=== PATIENT | male | born 1990 | race Caucasian/White ===

== ENCOUNTER 2017-04-24 19:42 | Inpatient (IN) | payer OTHER ==
[2017-04-24 19:47] VITALS: O2SAT 99
--- NOTE | 2017-04-24 19:48 | ED PDOC ---
Psych Transfer Clearance - Clearance Statement Clearance Statement: Dr. Cruz reviewed vital signs, lab results and transfer papers and deemed patient clinically stable for psychiatric admission.
--- NOTE | 2017-04-24 21:57 | PCM.BM ---
<Isaura Vaughan - Last Filed: 04/24/17 21:55> Treatment assets and liabiliti Patient Assests: adapts well, cooperative, educated, insightful, motivated, self -reliant, ADL independent, physically healthy, negotiates basic needs, cognitively intact, good interpersonal skills Patient Liabilities: financial problems, poor support system, relationship conflicts, substance abuse - Milieu Protocol Maintain good personal hygiene: daily Encourage regular showers, daily Remind patient to perform daily oral care, daily Assist patient to perform ADL's Maintain personal safety: every shift Educate patient to report safety concerns to staff, every shift Monitor environment for contraband/sharps Medication safety: Monitor for expected outcome, potential side effects: every shift, Assess barriers to learning: daily, Assess readiness for medication education: daily <Ann Bragg - Last Filed: 04/29/17 10:50> Treatment assets and liabiliti Patient Assests: adapts well, cooperative, insightful, motivated, resourceful, self-reliant, ADL independent, physically healthy, negotiates basic needs, cognitively intact, good interpersonal skills Patient Liabilities: financial problems, poor support system, relationship conflicts, substance abuse Family Contact Family involvement: Family/SO is involved Family contact: Patient agrees to contact, Family has been contacted by patient , Telephone contact initiated by staff Family contact name: Radha (girlfriend)([phone]) Family contacted how many times per week?: 2 Family contact comment: Help Desk Analyst placed call to patients primary support/long time girlfriend to discuss patients progress on 3NP and aftercare. Help Desk Analyst provided psychoeducation regarding nature of tx provided on 3NP and rehab referrals. Patients girlfriend reports that patient will not be allowed to return to her home until a program is completed. Patients girlfriend notified that patient has been accepted for substance abuse tx with Dima Bran ([facility]) and will be discharged to program on 05/01. - Outside Agency Agency 1 Care involvment: Other Agency contact name: Dima BranDOMINGO) Agency contact number: [phone] - Goals for Treatment Patient goals for treatment: Patient to continue stabilization on 3NP through medication management and group/supportive therapy. Patient encouraged to attend 3-6 groups/weekly to develop appropriate coping skills, improve sinight and promote compliance and sobriety. Patient reports improvement in symptoms of depression since admission. Patient denies SI/HI. Patient denies AH/VH. Patient visible on 3NP and observed socializing appropriately with peers. Patient expresses motivation for tx upon discharge and is anticipated to begin substance abuse tx with [facility] on 05/01. Discharge/Continuing Care - Education Needs Education Needs: Family Medication, Family Diagnosis/Disease Process, Family Coping Skills, Family Community resources, Family Aftercare Safety Plan, Patient Medication, Patient Diagnosis/Disease Process, Patient Coping Skills, Patient Community resources, Patient Aftercare Safety Plan - Discharge Discharge Criteria: Tolerates medication w/o severe side effects, Free of Suicidal thoughts, Free of agitation, Normal sleep pattern, Ability to care for self, No longer exhibiting s/s of withdrawal, Reduction of target symptoms Discharge to:: Substance Abuse Rehab - Treatment Team Participation Patient/Family/SO Statement: 04/29/17 10:44 Patient invited to treatment team to discuss progress on 3NP, improvement in symptoms and aftercare. Patient presents with brighter affect and reports improvement in symptoms of depression. Patient expresses being motivated for substance abuse treatment. Patient visible on 3NP and observed socializing appropriately with select peers. No harmful behaviors noted. Discussed with Family/SO: Yes Was Patient/Family/SO present at Treatment Team Meeting: Yes
[2017-04-24] MEDS ORDERED: Magnesium Hydroxide Susp 30 ml UD PO PRN (22:19)
[2017-04-24] MEDS ORDERED: Alum-Mag Hydrox-Simethicone Susp (30 mL) PO PRN (22:19)
[2017-04-24] MEDS ORDERED: DiphenhydrAMINE 50 mg/ml Inj IM PRN (22:19)
[2017-04-25 08:14] LABS: T4 9.95 ug/dl (5.5-11.0)
[2017-04-25 08:28] LABS: THYROID STIMULATING HORMONE 0.4 mIU/ML (0.46-4.68)
--- NOTE | 2017-04-25 12:31 | CP.PCM.CON ---
History of Present Illness - History of Present Illness History of Present Illness: Reason for Consult: per hospital protocol HPI: 27 year old male no past medical history transferred from [facility] for depression. Pt states he uses about $400 worth of crack/cocaine daily, and steals to support his habit. Patient has no other complaints at this time. VSS. NAD. ROS: per HPI, 12 systems reviewed and negative PMH: denies PSH: denies FH: denies SH: tobacco 10 pack/year hx, liquor every other day can not identify amount, crack/cocaine $400 worth daily Meds: as below Allergies: NKDA Vitals: reviewed and currently stable Exam: GEN: WDWN, alert, cooperative HEENT: NCAT, PERRL, EOMI NECK: supple, no JVD, no lymphadenopathy CARDIAC: +S1S2 RRR LUNG: CTAB No WRR ABD: SOFT NT ND BSX4 NO MASSES NO HSM EXT: +pedal pulses, equal strength NEURO: AAOx3 SKIN warm, dry PSYCH normal mood, normal affect Labs: pending to be reviewed Assessment and Plan: 27 year old male no past medical history transferred from [facility] for depression. Pt states he uses about $400 worth of crack/cocaine daily, and steals to support his habit. Patient has no other complaints at this time. VSS. NAD. Depression Substance Abuse Management per psych team Past Patient History - CARDIAC Hx Cardiac Disorders: No - PULMONARY Hx Respiratory Disorders: No - NEUROLOGICAL Hx Neurological Disorder: No - HEENT Hx HEENT Problems: No - RENAL Hx Chronic Kidney Disease: No - ENDOCRINE/METABOLIC Hx Endocrine Disorders: No - HEMATOLOGICAL/ONCOLOGICAL Hx Blood Disorders: No - INTEGUMENTARY Hx Dermatological Problems: No - MUSCULOSKELETAL/RHEUMATOLOGICAL Hx Musculoskeletal Disorders: No - GASTROINTESTINAL Hx Gastrointestinal Disorders: No - GENITOURINARY/GYNECOLOGICAL Hx Genitourinary Disorders: No - PSYCHIATRIC Hx Substance Use: Yes - SURGICAL HISTORY Hx Surgeries: No - ANESTHESIA Hx Anesthesia: No Hx Anesthesia Reactions: No Has any member of the family had a problem w/ anesthesia?: No Meds Allergies/Adverse Reactions: Allergies Allergy/AdvReac Type Severity Reaction Status Date / Time No Known Allergies Allergy Verified 04/24/17 19:44 - Medications Medications: Current Medications Acetaminophen (Tylenol 325mg Tab) 650 mg PO Q4 PRN PRN Reason: Pain, moderate (4-7) Al Hydrox/Mg Hydrox/Simethicone (Maalox Plus 30 Ml) 30 ml PO Q4 PRN PRN Reason: Dyspepsia Diphenhydramine HCl (Benadryl) 50 mg IM Q6 PRN PRN Reason: Extrapyramidal S/S Unable PO Diphenhydramine HCl (Benadryl) 50 mg PO Q6 PRN PRN Reason: Extrapyramidal Symptoms Diphenhydramine HCl (Benadryl) 50 mg PO HS PRN PRN Reason: Sleep Haloperidol (Haldol) 5 mg PO Q4 PRN PRN Reason: Agitation Haloperidol Lactate (Haldol) 5 mg IM Q4 PRN PRN Reason: Agitation, Unable to Take PO Lorazepam (Ativan) 2 mg IM Q4 PRN PRN Reason: Anxiety/Agitation,Unable PO Lorazepam (Ativan) 2 mg PO Q4 PRN PRN Reason: Anxiety/Agitation Magnesium Hydroxide (Milk Of Magnesia) 30 ml PO HS PRN PRN Reason: Constipation Results - Vital Signs Recent Vital Signs: Last Vital Signs Temp 98.1 F 04/24/17 19:44 Pulse 82 04/24/17 22:00 Resp 17 04/24/17 22:00 BP 129/73 04/24/17 19:44 Pulse Ox 99 04/24/17 19:44 - Labs Labs: Laboratory Results - last 24 hr 04/25/17 07:20 Triglycerides 52 Cholesterol 106 LDL Cholesterol Direct 54 HDL Cholesterol 40 Thyroxine (T4) 9.95 TSH 3rd Generation 0.40 L
[2017-04-25 17:11] LABS: HEMATOCRIT 44.8 % (35.0-51.0); MEAN CELL VOLUME 85.7 fl (80.0-94.0); MEAN CORPUSCULAR HEMOGLOBIN 27.5 pg (27.0-31.0); RED CELL DISTRIBUTION WIDTH 15.4 % (11.5-14.5); WHITE BLOOD COUNT 7.7 K/uL (4.8-10.8)
[2017-04-25 17:18] LABS: BLOOD UREA NITROGEN 16 mg/dl (9-20); CALCIUM 9.9 mg/dL (8.4-10.2); CARBON DIOXIDE 25 mmol/L (22-30); CHLORIDE 103 mmol/L (98-107); GFR AFRICAN-AMERICAN > 60; GLUCOSE,RANDOM 78 mg/dL (75-110); POTASSIUM 4.6 MMOL/L (3.6-5.0); SODIUM 140 mmol/l (132-148)
--- NOTE | 2017-04-26 17:48 | PCM.PSYCH ---
Initial Psychiatric Evaluation - Initial Psychiatric Evaluation Chief Complaint (in patient's own words): late note for [id number]\\ pt [facility] reportedly attempting to take life after ingesting etoh,cocaine heroin. reportedly was despondent 2nd to finances, now working. reported chronic use of substance with recent increase. has a girlfriend of 6 years who is reportedly supportive. pt reports that has been told in past that appears to have difficulty sitting still, paying attention. Denies known issues in school. 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 originally from [place], [place], has family in [place], last visit [facility] approx. 2 years ago. pt reports that has had a substance abuse hx. for several years, with amount used reportedly stable (no increase), pt does report a hx. of being incarcerated in past for 6 months (CDS)-longest period of being free of substance use use: underlying mood reported as being depressed. reports one previous suicide attempt approx. 1 year ago similar circumstance as current. does report having "a bad childhood" but defers details. Patient's Reaction to Hospitalization: verbally agreeable for admission History of Present Illness and Precipitating Events: see above Current Medications: Active Medications Generic Name Dose Route Start Last Admin Trade Name Freq PRN Reason Stop Dose Admin Acetaminophen 650 mg 04/24/17 22:19 Tylenol 325mg Tab PO Q4 PRN Pain, moderate (4-7) Al Hydrox/Mg Hydrox/Simethicone 30 ml 04/24/17 22:19 Maalox Plus 30 Ml PO Q4 PRN Dyspepsia Bupropion HCl 75 mg 04/27/17 09:00 Wellbutrin PO DAILY SUSHANT Diphenhydramine HCl 50 mg 04/24/17 22:19 Benadryl IM Q6 PRN Extrapyramidal S/S Unable PO Diphenhydramine HCl 50 mg 04/24/17 22:19 Benadryl PO Q6 PRN Extrapyramidal Symptoms Diphenhydramine HCl 50 mg 04/24/17 23:37 Benadryl PO HS PRN Sleep Haloperidol 5 mg 04/24/17 22:19 Haldol PO Q4 PRN Agitation Haloperidol Lactate 5 mg 04/24/17 22:19 Haldol IM Q4 PRN Agitation, Unable to Take PO Lorazepam 2 mg 04/24/17 22:19 Ativan IM Q4 PRN Anxiety/Agitation,Unable PO Lorazepam 2 mg 04/24/17 22:19 Ativan PO Q4 PRN Anxiety/Agitation Magnesium Hydroxide 30 ml 04/24/17 22:19 Milk Of Magnesia PO HS PRN Constipation Past Psychiatric History - Past Psychiatric History Prior Professional Help: inpt er Prior Psychiatric Treatment: [facility] Nature of Treatment: previous n/a denies detox History of Abuse: defers detail at time of examination review may share with team at later time History of ETOH/Drug Use: cocaine, heroin, etoh intranasal denies DT's History of Family Illness: denies Pertinent Medical Hx (Current Medical&Sleep Prob, Allergies): Allergies Allergy/AdvReac Type Severity Reaction Status Date / Time No Known Allergies Allergy Verified 04/24/17 19:44 Review of Systems - Psychiatric Psychiatric: Abnormal Sleep Pattern, Anhedonia, Suicidal Ideation Additional comments: contracts for safety trouble with concentration sitting still Mental Status Examination - Personal Presentation Personal Presentation: Looks older than stated age - Affect Affect: Constricted - Motor Activity Motor Activity: Calm, Psychomotor Retardation - Reliability in Providing Information Reliability in Providing Information: Fair - Speech Speech: Organized - Mood Mood: Depressed - Obsessions/Compulsions Obsessions: No Compulsions: No - Cognitive Functions Orientation: Person, Place, Situation, Time Sensorium: Alert Attention/Concentration: Attentive Judgement: Intact, as evidence by: Other - Risk Risk: Suicidal Additional comments: contracts - Strength & Assets Inventory Strength & Assets Inventory: Cooperative Additional comments: supportive female significant - Limitations Additional comments: chronic substance use DSM 5 DX - DSM 5 DSM 5 Diagnosis: major 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 of previous suicide attempt - Recommended/Plan of Treatment Treatment Recommendations and Plan of Treatment: admission per dr ortiz vital signs/clinical observation per protocol and per clinical status hospital consult prns per protocol requesting [facility] detox obtain collateral information in am() Projected ELOS: 5-7 days Prognosis: guarded Discharge Plan and Discharge Criteria: safety - Smoking Cessation Smoking Cessation Initiated: No Reason for not providing: defers need
--- NOTE | 2017-04-26 18:03 | PCM.PYCHPN ---
Psychiatric Progress Note - Psychiatric Progress Note Patient seen today, length of contact: chart reviewed case discussed with team Patient Chief Complaint: pt seen in unit, interacting with select peers, staff report pt adherent with milieu therapy, pt reports slept well appetite good pt had visit today with female significant other who collaborates history , does report that pt is easily distracted, beginning many things without completing, possibly being told possible adhd? late note for [id number]\\ pt presented to [facility] via [facility] after referral from [facility] after reportedly attempting to take life after ingesting etoh,cocaine heroin. reportedly was despondent 2nd to finances, now working. reported chronic use of substance with recent increase. has a girlfriend of 6 years who is reportedly supportive. pt reports that has been told in past that appears to have difficulty sitting still, paying attention. Denies known issues in school. 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 originally from [place], estranged from family in , has family in [place], last visit [facility] approx. 2 years ago. pt reports that has had a substance abuse hx. for several years, with amount used reportedly stable (no increase), pt does report a hx. of being incarcerated in past for 6 months (CDS)-longest period of being free of substance use use: underlying mood reported as being depressed. reports one previous suicide attempt approx. 1 year ago similar circumstance as current. does report having "a bad childhood" but defers details. Problems Identified/Issues Discussed: alteration in mood alteration in safety ?alteration in cognition Medical Problems: per chart Diagnostic Results: per psychiatry per medicine per nursing per social work DSM 5 Symptoms Update: depressed mood, alteration in coping chronic substance use, no withdrawal Medication Change: Yes (wellbutrin 75mg po day) Medical Record Reviewed: Yes Consults ordered or reviewed: pt being seen by hospitalist Mental Status Examination - Cognitive Function Orientation: Person, Place, Situation, Time Attention: WNL Concentration: WNL Association: WNL Fund of Knowledge: WNL Decription of patient's judgement and insights: impaired - Mood Mood: Depressed - Affect Affect: Constricted - Suicidal Ideation Suicidal Ideation: Yes Plan: contracts safety - Homicidal Ideation Homicidal Ideation: No Goal/Treatment Plan - Goal/Treatment Plan Need for Continued Stay: Severe depression anxiety, Discharge may exacerbated symptoms Progress Toward Problem(s) and Goals/Treatment Plan: inpt milieu start buproprion 75mg po daily vital signs/clinical observation per protocol and per clinical status hospital consult prns per protocol requesting [facility] detox disposition planning in progress ?[facility] detox Estimated Date of D/C: 04/30/17 - Smoking Cessation Smoking Cessation Initiated: No Reason for not providing: pt defers
--- NOTE | 2017-04-27 12:17 | PCM.PYCHPN ---
Psychiatric Progress Note - Psychiatric Progress Note Patient seen today, length of contact: discussed with team Patient Chief Complaint: i feel okay Problems Identified/Issues Discussed: pt states he just started wellbutrin today and he has no side effects at this time. he reports feeling better now than before he came in. reports he cannot control his cocaine use and he wants a rehab program. he denies suicidal thoughts now. Medication Change: Yes ( ) Medical Record Reviewed: Yes Mental Status Examination - Cognitive Function Orientation: Person, Place, Situation, Time Memory: Intact Attention: WNL Concentration: WNL Association: WNL Fund of Knowledge: [facility] Decription of patient's judgement and insights: fair - Mood Mood: Depressed - Affect Affect: Constricted - Formal Thought Process Formal Thought Process: No Impairment - Suicidal Ideation Suicidal Ideation: No Plan: denies suicidal thoughts - Homicidal Ideation Homicidal Ideation: No Goal/Treatment Plan - Goal/Treatment Plan Need for Continued Stay: Severe depression anxiety, Discharge may exacerbated symptoms Progress Toward Problem(s) and Goals/Treatment Plan: cocaine dependence major depression, unspecified continue current treatment inc. wellbutrin sr to 150mg daily refer to in rehab/[facility]. Estimated Date of D/C: 04/30/17
[2017-04-27] MEDS ORDERED: Benzocaine/Menthol (Cepacol) Lozenge PO PRN (20:07)
[2017-04-28 09:17] VITALS: RESP 18
[2017-04-28] MEDS: buPROPion SR 150 MG TABLET PO SCH (09:27)
--- NOTE | 2017-04-28 11:35 | PCM.PYCHPN ---
Psychiatric Progress Note - Psychiatric Progress Note Patient seen today, length of contact: discussed with team Patient Chief Complaint: i feel good Problems Identified/Issues Discussed: pt denies medication side effects. states his sleep is good. he is participating in groups. pt denies that he made a suicide attempt, but that he was looking for "help" he states he knows he needs to get sober. he feels his primary problem is cocaine use. Medication Change: No ( ) Medical Record Reviewed: Yes Mental Status Examination - Cognitive Function Orientation: Person, Place, Situation, Time Memory: Intact Attention: WNL Concentration: WNL Association: [facility] Fund of Knowledge: [facility] Decription of patient's judgement and insights: fair - Mood Mood: Depressed - Affect Affect: Constricted - Formal Thought Process Formal Thought Process: No Impairment - Suicidal Ideation Suicidal Ideation: No - Homicidal Ideation Homicidal Ideation: No Goal/Treatment Plan - Goal/Treatment Plan Need for Continued Stay: Severe depression anxiety, Discharge may exacerbated symptoms Progress Toward Problem(s) and Goals/Treatment Plan: cocaine dependence major depression, unspecified continue current treatment start wellbutrin sr to 150mg daily today refer to in rehab/[facility]. Estimated Date of D/C: 04/30/17
--- NOTE | 2017-04-29 09:37 | PCM.PYCHPN ---
Psychiatric Progress Note - Psychiatric Progress Note Patient seen today, length of contact: discussed with team Patient Chief Complaint: i am okay Problems Identified/Issues Discussed: pt reports his mood is "good" he denies medication side effects. anticipating starting at [facility] thursday. he is c/o some cough at hs. Medication Change: No ( ) Medical Record Reviewed: Yes Mental Status Examination - Cognitive Function Orientation: Person, Place, Situation, Time Memory: Intact Attention: WNL Concentration: WNL Association: WNL Fund of Knowledge: [place] Decription of patient's judgement and insights: fair - Mood Mood: Depressed - Affect Affect: Constricted - Formal Thought Process Formal Thought Process: No Impairment - Suicidal Ideation Suicidal Ideation: No - Homicidal Ideation Homicidal Ideation: No Goal/Treatment Plan - Goal/Treatment Plan Need for Continued Stay: Severe depression anxiety, Discharge may exacerbated symptoms Progress Toward Problem(s) and Goals/Treatment Plan: cocaine dependence major depression, unspecified continue current treatment tolerating wellbutrin and have sent script to pharmacy for a month supply to be picked up before dc on thursday refer to inpt rehab/[facility]. Estimated Date of D/C: 05/01/17
[2017-04-29] MEDS: buPROPion SR 150 MG TABLET PO SCH (09:50)
[2017-04-30] MEDS: buPROPion SR 150 MG TABLET PO SCH (08:58)
--- NOTE | 2017-04-30 11:48 | PCM.PYCHPN ---
Psychiatric Progress Note - Psychiatric Progress Note Patient seen today, length of contact: discussed with team Patient Chief Complaint: i feel ready Problems Identified/Issues Discussed: pt reports he is looking forward to leaving tomorrow. he denies any suicidal thoughts. denies medication side effects. Medication Change: No ( ) Medical Record Reviewed: Yes Mental Status Examination - Cognitive Function Orientation: Person, Place, Situation, Time Memory: Intact Attention: WNL Concentration: WNL Association: WN Fund of Knowledge: [facility] Decription of patient's judgement and insights: fair - Mood Mood: Depressed - Affect Affect: Broad - Speech Speech: Appropriate - Formal Thought Process Formal Thought Process: No Impairment - Suicidal Ideation Suicidal Ideation: No - Homicidal Ideation Homicidal Ideation: No Goal/Treatment Plan - Goal/Treatment Plan Need for Continued Stay: Severe depression anxiety, Discharge may exacerbated symptoms Progress Toward Problem(s) and Goals/Treatment Plan: cocaine dependence major depression, unspecified discharge tomorrow to [facility]. pt has medications delivered to the unit. Estimated Date of D/C: 05/01/17
[2017-05-01] MEDS: buPROPion SR 150 MG TABLET PO SCH (08:23)
[2017-05-01 08:28] VITALS: BP 109/72; PULSE 68; TEMP 96.8
--- NOTE | 2017-05-01 08:40 | PCM.PYCHDC ---
Mental Status Examination - Mental Status Examination Orientation: Person, Place, Situation, Time Memory: Intact Mood: Neutral Affect: Broad Speech: Appropriate Attention: WNL Concentration: WNL Association: WNL Fund of Knowledge: WNL Formal Thought Process: No Impairment Description of patient's judgement and insight: fair Psychotic Thoughts and Behaviors: denies any a/v hallucinations Suicidal Ideation: No Current Homicidal Ideation?: No Plan: denies any suicidal or homicidal thoughts/plans or intent Discharge Summary - Discharge Note Reason for Hospitalization: depression, substance use Psychiatric History (includes Medical, Family, Personal Hx): previous n/a denies detox Consultations:: List each consultation separately and include: 1. Reason for request. 2. Findings. 3. Follow-up Consultations: seen by hospitalist Summary of Hospital Course include:: 1. Description of specific treatment plan utilized for patients during their course of treatmen. 2. Summarize the time- course for resolution of acute symptoms and/or regressed behaviors. 3. Describe issues identified and worked on during hospitalization. 4. Describe medication utilized. 5. Describe medical problems identified and treated. 6. Reassessment of suicide risk Summary of Hospital Course: admitted to [facility] and oriented to the unit. placed on routine safety protocols. seen by hospitalist. started on wellbutrin to target his depressive symptoms. he was referred to the [facility] to treat his cocaine use disorder. he participated in groups, was social with peers and was goal directed and future oriented. his girlfriend was expressing support and did help transport pt to the [facility]. at time of discharge pt was denying any suicidal or homicidal thoughts. - Final Diagnosis (DSM 5) Condition upon Discharge: FAIR DSM 5: cocaine use disorder major depression recurrent Disposition: HOME/ ROUTINE Follow-up Treatment Plan: follow up with outpt treatment as directed take medications as prescribed do not use alcohol, tobacco or other illicit substances calll 911 if any suicidal or homicidal thoughts attend aa/na groups daily. Prescriptions/Medication Reconciliation: buPROPion SR [Wellbutrin SR 150 MG] 150 mg PO DAILY #30 tab - Smoking Cessation Smoking Cessation Medication prescribed: Yes - Antipsychotic Medications Pt discharged on 2 or more routine antipsychotic medications: No
== END 2017-05-01 08:53 | disposition home or self-care (01) | DRG 430 ==
LOC: H.ER 19:42 → H.PSYCH 19:47
PROVIDERS: ADMIT Psychiatry & Neurology Psychiatry; ATTEND Psychiatry & Neurology Psychiatry
PROC: GZHZZZZ Group Psychotherapy (ICD-10-PCS; principal; 2017-04-24)
DX: F33.9 Major depressive disorder, recurrent, unspecified (principal); F41.9 Anxiety disorder, unspecified; F14.90 Cocaine use, unspecified, uncomplicated